=== PATIENT | male | born 1995 | race Caucasian/White ===

== ENCOUNTER 2020-05-13 14:20 | Outpatient (CLI) | payer BC | END 2020-05-13 23:59 | disposition home or self-care (01) | LOC: COV 14:20 | PROVIDERS: ATTEND Family Medicine | DX: U07.1 COVID-19 (principal) ==

== ENCOUNTER 2021-03-10 09:06 | Emergency (ER) | payer OTHER, BC ==
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
[2021-03-10 09:29] VITALS: BP 106/71
[2021-03-10] MEDS ORDERED: IBUPROFEN 600 MG TABLET PO STA (10:03)
[2021-03-10] MEDS ORDERED: MAG HYDROX/AL HYDROX/SIMETH 30 ML UDC PO STA (10:03)
[2021-03-10] MEDS ORDERED: ACETAMINOPHEN 325 MG TABLET PO STA (10:03)
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
== END 2021-03-10 11:50 | disposition home or self-care (01) ==
LOC: EDSEX → EDUNIT# → ED 09:06
DX: S16.1XXA Strain of muscle, fascia and tendon at neck level, initial encounter (principal); S76.211A Strain of adductor muscle, fascia and tendon of right thigh, initial encounter; V43.52XA Car driver injured in collision with other type car in traffic accident, initial encounter; Y92.410 Unspecified street and highway as the place of occurrence of the external cause
CPT/HCPCS: 72125; 76870; 93975; 99282; 99284; A9270